=== PATIENT | female | born 1980 | race Caucasian/White ===

== ENCOUNTER 2019-09-11 23:30 | Observation (INO) | payer SELFPAY ==
[2019-09-12 01:12] LABS: Basophils % (Auto) 0.1 % (0.0-1.8); Eosinophils % (Auto) 0.5 % (0.0-4.3); Hematocrit 38.6 % (30.3-42.9); Hemoglobin 13.2 gm/dl (10.1-14.3); Lymphocytes % (Auto) 11.1 % (13.4-35.0); Mean Corpuscular HGB Conc 34 % (30-34); Mean Corpuscular Volume 86 fl (79-97); Monocytes # (Auto) 0.4 K/mm3 (0.0-0.8); Monocytes % (Auto) 4.1 % (0.0-7.3); Platelet Count 225 K/mm3 (140-440); Red Cell Distribution Width 13.2 % (13.2-15.2)
--- NOTE | 2019-09-12 01:26 | Cat Scan Report ---
CT head without contrast INDICATION : Headache. TECHNIQUE: Axial imaging performed from the skull apex through the skull base without the use of con trast. All CT examinations performed at this facility utilize dose modulation, iterative reconstruct ion or weight-based dosing, when appropriate, to reduce radiation dose to as low as reasonably achiev able. COMPARISON: None FINDINGS: No acute intracranial hemorrhage or parenchymal abnormality. Ventricles are normal in si ze and appear symmetric. Small soft tissue contusion/hematoma along the right posterior convexity.. No acute osseous abnormality. Sinuses and mastoid air cells are clear. IMPRESSION: No acute intracranial abnormality. Right posterior convexity soft tissue scalp contusion with mild underlying hemorrhage, as above Signer Name: Thiago Mendez MD Signed: 09/12/2019 1:21 AM Workstation Name: [id number]
[2019-09-12 02:28] LABS: Alanine Aminotransferase 19 units/L (7-56); Albumin 4.7 g/dL (3.9-5); BUN/Creatinine Ratio 22; Blood Urea Nitrogen 11 mg/dL (7-17); Calcium 8.9 mg/dL (8.4-10.2); Hemolysis Index 3
[2019-09-12 06:11] LABS: HCG Qualitative,Urine Negative (Negative)
[2019-09-12] MEDS ORDERED: REGLAN IV ONE (06:23)
[2019-09-12] MEDS ORDERED: BENADRYL IV ONE (06:23)
[2019-09-12] MEDS ORDERED: NACL 0.9% 500 ML 500 ML IV ONE (06:23)
--- NOTE | 2019-09-12 06:24 | Emergency Department Report ---
ED General Adult HPI - General Chief complaint: Syncope Stated complaint: HEAD PAIN Time Seen by Provider: 09/12/19 06:00 Source: patient, RN notes reviewed Mode of arrival: Stretcher Limitations: Language Barrier, Other (the patient does not recall what happened.) - History of Present Illness Initial comments: display carver: Nurse Mila Alfaro This is a 39-year-old female. This patient is not known to this provider previously. The patient stated that she does not have a primary care doctor, and that she does not have chronic medical conditions. The patient stated that she is not . The patient doesn't know what happened. The patient states that she has a simple scalp pain, and left-sided neck pain. As per triage documentation, the patient reportedly had episode of loss of consciousness at 10:30 PM last night. The patient doesn't recall what happened. The patient states that she can't recall anything prior to waking up in the hospital. The patient makes no complaint of chest pain, abdominal pain, shortness of breath. The patient denies midline neck pain. The patient makes no complaint of focal extremity weakness. She denies dysuria, hematemesis, bright red blood per rectum. She denies DVT, pulmonary embolism risk factors. There is no family available at this time for collateral information. She has a young 12-year-old child with her currently who is sleeping. -: unknown Location: head, neck Radiation: non-radiation Severity scale (0 -10): 8 Improves with: none Worsens with: none - Related Data Allergies Allergy/AdvReac Type Severity Reaction Status Date / Time No Known Allergies Allergy Verified 09/12/19 00:36 ED Review of Systems ROS: Stated complaint: HEAD PAIN Other details as noted in HPI Constitutional: denies: fever Eyes: denies: eye discharge ENT: denies: congestion Respiratory: denies: wheezing Cardiovascular: syncope. denies: chest pain Gastrointestinal: denies: nausea, vomiting, hematemesis, melena, hematochezia Genitourinary: denies: dysuria Musculoskeletal: myalgia Neurological: headache, confusion Hematological/Lymphatic: denies: easy bleeding ED Past Medical Hx - Past Medical History Previous Medical History?: No - Surgical History Past Surgical History?: No - Social History Smoking Status: Never Smoker Substance Use Type: None ED Physical Exam - General Limitations: Language Barrier General appearance: alert, anxious - Head Head exam: Present: atraumatic, normocephalic - Eye Eye exam: Present: normal appearance, PERRL, EOMI, other (visual acuity intact to finger counting and color perception at a close distance). Absent: nystagmus - ENT ENT exam: Present: normal exam, normal orophraynx, mucous membranes moist, normal external ear exam - Neck Neck exam: Present: normal inspection, full ROM, other (there is no carotid bruit. There is no expansile hematoma. There is no midline cervical spine step-offs or tenderness). Absent: tenderness, meningismus - Respiratory Respiratory exam: Present: normal lung sounds bilaterally. Absent: respiratory distress - Cardiovascular Cardiovascular Exam: Present: normal rhythm, tachycardia, normal heart sounds. Absent: systolic murmur, diastolic murmur, rubs, gallop - GI/Abdominal GI/Abdominal exam: Present: soft. Absent: distended, tenderness, guarding, rebound, rigid, pulsatile mass - Extremities Exam Extremities exam: Present: normal inspection, full ROM, other (2+ pulses noted in the bilateral upper, lower extremities. There is no long bone tenderness. Musculoskeletal compartments are soft. The pelvis is stable.). Absent: pedal edema, calf tenderness - Back Exam Back exam: Present: normal inspection. Absent: tenderness, CVA tenderness (R), CVA tenderness (L), paraspinal tenderness, vertebral tenderness - Neurological Exam Neurological exam: Present: alert (the patient is alert to name and year. She does not know where she is. She does not know the month.), other (there is no facial droop. The tongue is midline. Extraocular movements are intact bilatera lly. There is 5 out of 5 strength bilateral upper, lower extremities. Sensation is intact to light touch in 4 extremities.) - Psychiatric Psychiatric exam: Present: anxious - Skin Skin exam: Present: warm, dry, intact, normal color. Absent: rash ED Course Vital Signs 09/11/19 09/12/19 09/12/19 23:52 04:50 07:40 Temperature 98.4 F 98.0 F Pulse Rate 119 H 98 H Respiratory 18 20 18 Rate Blood Pressure 133/93 Blood Pressure 124/81 [Left] O2 Sat by Pulse 98 100 Oximetry 09/12/19 09:06 Temperature Pulse Rate 110 H Respiratory 18 Rate Blood Pressure Blood Pressure 91/54 [Left] O2 Sat by Pulse 98 Oximetry - Reevaluation(s) Reevaluation #1: 09/12/19 07:18 Differential diagnosis, including not limited to: Orthostasis, vagal event, structural cardiac disease, concussion, carotid dissection, pulmonary embolism, acute coronary syndrome Assessment and plan: 39-year-old female with an episode of syncope. The patient does not recall the event. She cannot offer proceeding history. She complains of headache and neck pain. She is clinically sober at this time. She is alert and oriented to name and year. She is tachycardic, but not hypoxic. She is not to. EKG abnormal without prior for comparison. Given complaints of syncope, headache and neck pain, CT angiogram ordered. Given tachycardia, and syncope, d-dimer ordered, found to be elevated, therefore, nuclear medicine study will be ordered. We've recommended admission to the medical service once initial diagnostics resulted. This was communicated to the patient using a display carver, the patient verbalizes understanding. Reevaluation #2: 09/12/19 07:45 CT angiogram head negative for acute disease. Reevaluation #3: 09/12/19 08:30 CT scan of the neck is negative for arterial disease. There are incidental lucencies noted, suggestive of possible metastatic disease. The patient did not endorse any constitutional symptoms. Her exam is not consistent with spinal cord compression or epidural compression syndrome at this time. Nuclear medicine study is pending at this time. Hospital physician, Dr. Pelayo, to admit the patient to the medical service. The patient will remain in the department pending results of nuclear medicine study. Reevaluation #4: 09/12/19 09:53 Chest x-ray is negative for acute disease. The nuclear medicine study is interpreted as low probability. ED Medical Decision Making - Lab Data Result diagrams: 09/12/19 00:46 09/12/19 00:46 Vital Signs 09/11/19 09/12/19 23:52 04:50 Temperature 98.4 F 98.0 F Pulse Rate 119 H 98 H Respiratory 18 20 Rate Blood Pressure 133/93 Blood Pressure 124/81 [Left] O2 Sat by Pulse 98 100 Oximetry Lab Results 09/12/19 09/12/19 09/12/19 Range/Units 00:46 00:46 06:36 WBC 9.3 (4.5-11.0) K/mm3 RBC 4.50 (3.65-5.03) M/mm3 Hgb 13.2 (10.1-14.3) gm/dl Hct 38.6 (30.3-42.9) % MCV 86 (79-97) fl MCH 29 (28-32) pg MCHC 34 (30-34) % RDW 13.2 (13.2-15.2) % Plt Count 225 (140-440) K/mm3 Lymph % (Auto) 11.1 L (13.4-35.0) % [place] % (Auto) 4.1 (0.0-7.3) % Eos % (Auto) 0.5 (0.0-4.3) % Baso % (Auto) 0.1 (0.0-1.8) % Lymph # 1.0 L (1.2-5.4) K/mm3 [place] # 0.4 (0.0-0.8) K/mm3 Eos # 0.0 (0.0-0.4) K/mm3 Baso # 0.0 (0.0-0.1) K/mm3 Seg Neutrophils % 84.2 H (40.0-70.0) % Seg Neutrophils # 7.8 H (1.8-7.7) K/mm3 PT 12.9 (12.2-14.9) Sec. INR 1.00 (0.87-1.13) APTT 30.3 (24.2-36.6) Sec. D-Dimer 311.21 H (0-234) ng/mlDDU Sodium 140 (137-145) mmol/L Potassium 3.5 L (3.6-5.0) mmol/L Chloride 102.5 (98-107) mmol/L Carbon Dioxide 23 (22-30) mmol/L Anion Gap 18 mmol/L BUN 11 (7-17) mg/dL Creatinine 0.5 L (0.7-1.2) mg/dL Estimated GFR > 60 ml/min BUN/Creatinine Ratio 22 % Glucose 109 H (65-100) mg/dL Calcium 8.9 (8.4-10.2) mg/dL Magnesium (1.7-2.3) mg/dL Total Bilirubin 0.60 (0.1-1.2) mg/dL AST 22 (5-40) units/L ALT 19 (7-56) units/L Alkaline Phosphatase 90 (35-129) units/L Total Creatine Kinase (30-135) units/L Total Protein 7.8 (6.3-8.2) g/dL Albumin 4.7 (3.9-5) g/dL Albumin/Globulin Ratio 1.5 % Urine HCG, Qual (Negative) 09/12/19 09/12/19 Range/Units 06:36 Unknown WBC (4.5-11.0) K/mm3 RBC (3.65-5.03) M/mm3 Hgb (10.1-14.3) gm/dl Hct (30.3-42.9) % MCV (79-97) fl MCH (28-32) pg MCHC (30-34) % RDW (13.2-15.2) % Plt Count (140-440) K/mm3 Lymph % (Auto) (13.4-35.0) % [place] % (Auto) (0.0-7.3) % Eos % (Auto) (0.0-4.3) % Baso % (Auto) (0.0-1.8) % Lymph # (1.2-5.4) K/mm3 [place] # (0.0-0.8) K/mm3 Eos # (0.0-0.4) K/mm3 Baso # (0.0-0.1) K/mm3 Seg Neutrophils % (40.0-70.0) % Seg Neutrophils # (1.8-7.7) K/mm3 PT (12.2-14.9) Sec. INR (0.87-1.13) APTT (24.2-36.6) Sec. D-Dimer (0-234) ng/mlDDU Sodium (137-145) mmol/L Potassium (3.6-5.0) mmol/L Chloride (98-107) mmol/L Carbon Dioxide (22-30) mmol/L Anion Gap mmol/L BUN (7-17) mg/dL Creatinine (0.7-1.2) mg/dL Estimated GFR ml/min BUN/Creatinine Ratio % Glucose (65-100) mg/dL Calcium (8.4-10.2) mg/dL Magnesium 2.10 (1.7-2.3) mg/dL Total Bilirubin (0.1-1.2) mg/dL AST (5-40) units/L ALT (7-56) units/L Alkaline Phosphatase (35-129) units/L Total Creatine Kinase 84 (30-135) units/L Total Protein (6.3-8.2) g/dL Albumin (3.9-5) g/dL Albumin/Globulin Ratio % Urine HCG, Qual Negative (Negative) - EKG Data -: EKG Interpreted by Me EKG shows normal: sinus rhythm Rate: normal, tachycardia - EKG Data When compared to previous EKG there are: previous EKG unavailable 09/12/19 07:17 There is no prior EKG available for comparison. The EKG shows a sinus tachycardia, normal axis, but QTC is 444 ms, there is an incomplete right bundle branch block, the EKG is abnormal, there is no prior for comparison. The EKG is not consistent with acute myocardial infarction - Radiology Data Radiology results: pending, report reviewed, image reviewed Noncontrast CT scan of the brain is negative for acute disease. CT angiogram head and neck: X-ray of the chest: Nuclear medicine study: Critical care attestation.: If time is entered above; I have spent that time in minutes in the direct care of this critically ill patient, excluding procedure time. ED Disposition Clinical Impression: History of syncope, Abnormal EKG Disposition: OP ADMIT IP TO THIS HOSP Is pt being admited?: Yes Condition: Good
[2019-09-12 07:03] LABS: Partial Thromboplastin Time 30.3 Sec. (24.2-36.6)
--- NOTE | 2019-09-12 07:40 | Cat Scan Report ---
CT angio head INDICATION / CLINICAL INFORMATION: 39 years Female; syncope neck pain. TECHNIQUE: Thin cut axial images obtained through the head during IV bolus contrast administration. S agittal, coronal, and 3 plane MIP reconstructions performed by the technologist. NASCET type criteria used evaluate stenoses. Automated exposure control utilized for radiation reduction purposes. COMPARISON: None available. FINDINGS: INTERNAL CAROTID ARTERIES: No significant narrowing appreciated. VERTEBROBASILAR SYSTEM: No significant narrowing appreciated. DISTAL BRANCHES: Distal branches of the anterior, middle, and posterior cerebral arteries are fairly symmetric in appearance and number. ANEURYSM: None identified. ADDITIONAL FINDINGS: Subcutaneous soft tissue swelling seen in the posterior parietal region on the r ight. No signs of underlying calvarial fracture. IMPRESSION: No significant abnormality on this CTA of the head. Signer Name: Jasson Hwang MD, III Signed: 09/12/2019 7:35 AM Workstation Name: [id number]
--- NOTE | 2019-09-12 07:54 | Cat Scan Report ---
CT angio neck INDICATION / CLINICAL INFORMATION: 39 years Female; syncope neck pain. TECHNIQUE: Thin cut axial images obtained through the head during IV bolus contrast administration. S agittal, coronal, and 3 plane MIP reconstructions performed by the technologist. NASCET type criteria used evaluate stenoses. All CT scans at this location are performed using CT dose reduction for ALAR A by means of automated exposure control. COMPARISON: None available. FINDINGS: ARCH: Normal aortic arch branching suggested. CAROTID ARTERIES: The visualized common and internal carotid arteries are widely patent. VERTEBRAL ARTERIES: Codominant vertebral system seen. No significant stenosis appreciated. ADDITIONAL FINDINGS: There are scattered lucencies seen in the visualized axial skeleton, with most p revalent finding seen at C5 and perhaps C7. Pre and postcontrast MRI of the cervical spine may be hel pful for further evaluation, to ensure there is no evidence of underlying metastatic disease. Please clinically correlate. No canal stenosis or foraminal narrowing seen in the cervical spine. Surrounding soft tissues are grossly normal. IMPRESSION: 1. No significant stenosis appreciated on this CTA of the neck. 2. Scattered lucencies in the visualized axial skeleton as described above. Follow-up with pre and po stcontrast MRI of the cervical spine, as clinically warranted. Signer Name: Jasson Hwang MD, III Signed: 09/12/2019 7:50 AM Workstation Name: [email or web address]
--- NOTE | 2019-09-12 08:26 | XRay Report ---
CHEST 1 VIEW INDICATION / CLINICAL INFORMATION: syncope tachyardia. COMPARISON: None available. FINDINGS: SUPPORT DEVICES: None. HEART / MEDIASTINUM: No significant abnormality. LUNGS / PLEURA: No significant pulmonary or pleural abnormality. No pneumothorax. ADDITIONAL FINDINGS: No significant additional findings. IMPRESSION: 1No significant abnormality. Signer Name: Saleem Angeles MD Signed: 09/12/2019 8:21 AM Workstation Name: [id number]
--- NOTE | 2019-09-12 09:51 | Nuclear Medicine Report ---
Ventilation/perfusion scan of the lungs INDICATION: Syncope Technique the patient was administered 5.2 mCi of technetium 99 MAA for the perfusion phase of the st udy and 12.2 mCi of xenon-133 for the ventilation phase FINDINGS: Both the ventilation and perfusion phases are normal with no evidence of pulmonary embolus, COPD or other abnormality. Signer Name: Saleem Angeles MD Signed: 09/12/2019 9:46 AM Workstation Name: [id number]
--- NOTE | 2019-09-12 12:49 | History and Physical Report ---
History of Present Illness Date of examination: 09/12/19 Date of admission: 09/12/19 08:31 Chief complaint: syncope History of present illness: 39-year-old Indonesian-speaking female presented through the emergency department with complaints of headache and left-sided neck pain. As per triage documentation, the patient reportedly had episode of loss of consciousness at 10:30 PM last night. The patient doesn't recall what happened. The patient states that she can't recall anything prior to waking up in the hospital. The patient makes no complaint of chest pain, abdominal pain, shortness of breath. The patient denies midline neck pain. The patient makes no complaint of focal extremity weakness. She denies dysuria, hematemesis, bright red blood per rectu m. The patient denies any history of cancer. Past History Past Medical History: No medical history Past Surgical History: No surgical history Social history: no significant social history Family history: no significant family history Medications and Allergies Allergies Allergy/AdvReac Type Severity Reaction Status Date / Time No Known Allergies Allergy Verified 09/12/19 00:36 Review of Systems All systems: negative Exam - Constitutional Vitals: Temp Pulse Resp BP Pulse Ox 98.2 F 77 18 120/75 99 09/12/19 10:34 09/12/19 10:34 09/12/19 10:34 09/12/19 10:34 09/12/19 10:34 General appearance: Present: no acute distress, well-nourished - EENT Eyes: Present: PERRL ENT: hearing intact, clear oral mucosa - Neck Neck: Present: supple, normal ROM - Respiratory Respiratory effort: normal Respiratory: bilateral: CTA - Cardiovascular Heart Sounds: Present: S1 & S2. Absent: rub, click - Extremities Extremities: pulses symmetrical, No edema Peripheral Pulses: within normal limits - Abdominal General gastrointestinal: Present: soft, non-tender, non-distended, normal bowel sounds Female genitourinary: Present: normal - Integumentary Integumentary: Present: clear, warm, dry - Musculoskeletal Musculoskeletal: gait normal, strength equal bilaterally - Psychiatric Psychiatric: appropriate mood/affect, intact judgment & insight - Neurologic Neurologic: CNII-XII intact, moves all extremities Results - Labs CBC & Chem 7: 09/12/19 00:46 09/12/19 00:46 Labs: Laboratory Last Values WBC 9.3 K/mm3 (4.5-11.0) 09/12/19 00:46 RBC 4.50 M/mm3 (3.65-5.03) 09/12/19 00:46 Hgb 13.2 gm/dl (10.1-14.3) 09/12/19 00:46 Hct 38.6 % (30.3-42.9) 09/12/19 00:46 MCV 86 fl (79-97) 09/12/19 00:46 MCH 29 pg (28-32) 09/12/19 00:46 MCHC 34 % (30-34) 09/12/19 00:46 RDW 13.2 % (13.2-15.2) 09/12/19 00:46 Plt Count 225 K/mm3 (140-440) 09/12/19 00:46 Lymph % (Auto) 11.1 % (13.4-35.0) L 09/12/19 00:46 [place] % (Auto) 4.1 % (0.0-7.3) 09/12/19 00:46 Eos % (Auto) 0.5 % (0.0-4.3) 09/12/19 00:46 Baso % (Auto) 0.1 % (0.0-1.8) 09/12/19 00:46 Lymph # 1.0 K/mm3 (1.2-5.4) L 09/12/19 00:46 [place] # 0.4 K/mm3 (0.0-0.8) 09/12/19 00:46 Eos # 0.0 K/mm3 (0.0-0.4) 09/12/19 00:46 Baso # 0.0 K/mm3 (0.0-0.1) 09/12/19 00:46 Seg Neutrophils % 84.2 % (40.0-70.0) H 09/12/19 00:46 Seg Neutrophils # 7.8 K/mm3 (1.8-7.7) H 09/12/19 00:46 PT 12.9 Sec. (12.2-14.9) 09/12/19 06:36 INR 1.00 (0.87-1.13) 09/12/19 06:36 APTT 30.3 Sec. (24.2-36.6) 09/12/19 06:36 D-Dimer 311.21 ng/mlDDU (0-234) H 09/12/19 06:36 Sodium 140 mmol/L (137-145) 09/12/19 00:46 Potassium 3.5 mmol/L (3.6-5.0) L 09/12/19 00:46 Chloride 102.5 mmol/L (98-107) 09/12/19 00:46 Carbon Dioxide 23 mmol/L (22-30) 09/12/19 00:46 Anion Gap 18 mmol/L 09/12/19 00:46 BUN 11 mg/dL (7-17) 09/12/19 00:46 Creatinine 0.5 mg/dL (0.7-1.2) L 09/12/19 00:46 Estimated GFR > 60 ml/min 09/12/19 00:46 BUN/Creatinine Ratio 22 % 09/12/19 00:46 Glucose 109 mg/dL (65-100) H 09/12/19 00:46 Calcium 8.9 mg/dL (8.4-10.2) 09/12/19 00:46 Magnesium 2.10 mg/dL (1.7-2.3) 09/12/19 06:36 Total Bilirubin 0.60 mg/dL (0.1-1.2) 09/12/19 00:46 AST 22 units/L (5-40) 09/12/19 00:46 ALT 19 units/L (7-56) 09/12/19 00:46 Alkaline Phosphatase 90 units/L (35-129) 09/12/19 00:46 Total Creatine Kinase 84 units/L (30-135) 09/12/19 06:36 Troponin T < 0.010 ng/mL (0.00-0.029) 09/12/19 06:36 Total Protein 7.8 g/dL (6.3-8.2) 09/12/19 00:46 Albumin 4.7 g/dL (3.9-5) 09/12/19 00:46 Albumin/Globulin Ratio 1.5 % 09/12/19 00:46 TSH 1.080 mlU/mL (0.270-4.200) 09/12/19 06:36 Urine HCG, Qual Negative (Negative) 09/12/19 Unknown Salicylates < 0.3 mg/dL (2.8-20.0) L 09/12/19 06:36 Acetaminophen < 5.0 ug/mL (10.0-30.0) L 09/12/19 06:36 Plasma/Serum Alcohol < 0.01 % (0-0.07) 09/12/19 06:36 Assessment and Plan Assessment and plan: Syncope. Etiology is unknown but most likely vasovagal. Continue to monitor on telemetry. CTA of the head and neck essentially negative with regards to vasculature. Echocardiogram pending. Abnormal cervical CT scan of the neck. CT scan revealed lucency and C5 and C7 suggestive of metastatic disease. Recommendations for MRI with contrast. Chest x-ray and CT scan of the head negative. Elevated d-dimer. Pulmonary perfusion scan negative for PE.
--- NOTE | 2019-09-12 16:40 | Magnetic Resonance Report ---
MR cervical spine w con INDICATION / CLINICAL INFORMATION: 39 years Female; abnormal CT neck. TECHNIQUE: Multisequence, multiplanar images of the cervical spine were obtained. Motion artifact COMPARISON: CTA neck - 09/12/2019 FINDINGS: CRANIOCERVICAL JUNCTION:No significant abnormality. ALIGNMENT: Mild scoliosis of the cervicothoracic region. VERTEBRAE:Vertebral bodies are normal in height for age. Focal area of subtle increased STIR is seen near the basal vertebral plexus at C5 and C7. These findings correspond with lucency seen on recent CT scan. These findings have a nonaggressive appearance and are most likely of no clinical significan ce. Overall, the marrow is otherwise grossly normal. VISUALIZED SPINAL CORD: No significant abnormality. Note, there is suggestion of increased T2 signal in the cord at the C4-5 level on the sagittal sequence. However, this finding is not confirmed on any other sequence and is felt to be artifactual. INTERVERTEBRAL DISCS: Grossly normal in height and signal intensity. [id number] ANALYSIS: C2-3: No significant abnormality. C3-4: No significant abnormality. C4-5: Small posterior central disc protrusion. C5-6: No significant abnormality. C6-7: No significant abnormality. C7-T1: Facet hypertrophy noted bilaterally, without significant sequela. PARASPINAL SOFT TISSUES: No significant abnormality. ADDITIONAL FINDINGS: None. IMPRESSION: 1. Degenerative changes of the cervical spine as described above. No single, dominant cause for patie nt's symptomatology appreciated. 2. Nonspecific, nonaggressive foci of subtle increased signal in the marrow at C5 and C7. These findi ngs most likely of no clinical significance. Signer Name: Jasson Hwang MD, III Signed: 09/12/2019 4:35 PM Workstation Name: [id number]
[2019-09-12 23:42] LABS: Amphetamine Screen,Urine PRESUMPTIVE NEGATIVE; Benzodiazepines Screen,Urine PRESUMPTIVE NEGATIVE; Cannabinoid Screen,Urine PRESUMPTIVE NEGATIVE; Cocaine Screen,Urine PRESUMPTIVE NEGATIVE; Methadone Screen,Urine PRESUMPTIVE NEGATIVE; Opiate Screen,Urine PRESUMPTIVE NEGATIVE
[2019-09-13 06:55] LABS: Basophils % (Auto) 0.8 % (0.0-1.8); Eosinophils # (Auto) 0.1 K/mm3 (0.0-0.4); Eosinophils % (Auto) 2.1 % (0.0-4.3); Hematocrit 36.1 % (30.3-42.9); Hemoglobin 12.5 gm/dl (10.1-14.3); Lymphocytes # (Auto) 1.6 K/mm3 (1.2-5.4); Lymphocytes % (Auto) 33.7 % (13.4-35.0); Mean Corpuscular HGB Conc 35 % (30-34); Mean Corpuscular Volume 85 fl (79-97); Monocytes # (Auto) 0.3 K/mm3 (0.0-0.8); Monocytes % (Auto) 7.1 % (0.0-7.3); Platelet Count 213 K/mm3 (140-440); Red Blood Count 4.23 M/mm3 (3.65-5.03); Red Cell Distribution Width 13.4 % (13.2-15.2)
[2019-09-13 07:19] LABS: BUN/Creatinine Ratio 24; Blood Urea Nitrogen 12 mg/dL (7-17); Calcium 8.6 mg/dL (8.4-10.2); Hemolysis Index 2
--- NOTE | 2019-09-13 09:09 | Discharge Summary ---
Providers - Providers Date of Admission: 09/12/19 08:31 Date of discharge: 09/13/19 Attending physician: JAVIER KESSLER [facility] Reason for admission: neck pain Condition: Good Hospital course: 39-year-old [place]-speaking female presented through the emergency department with diagnosis of headache, left-sided neck pain and syncope. Etiology of syncope was felt to be most likely vasovagal. Patient did have an elevated d- dimer and underwent pulmonary perfusion scan which was found to be negative for PE. Patient also underwent CT scan and CTA of the head that was found be negative. However, CTA of the neck negative with regards to the vasculature but revealed lucency and C5 and C7 suggestive of metastatic disease. Radiology recommended MRI of cervical spine. MRI revealed degenerative changes of the cervical spine with nonspecific, nonaggressive foci of subtle increased signal in the marrow and C5 and C7. These findings most likely of no clinical significance. Echocardiogram is pending and can be followed up as an outpatient. Dedicated discharge time 32 minutes. Disposition: DC-01 TO HOME OR SELFCARE Time spent for discharge: 32 - Discharge Diagnoses (1) Vasovagal syncope Status: Acute (2) Cervical osteoarthritis Status: Acute Core Measure Documentation - Palliative Care Palliative Care/ Comfort Measures: Not Applicable - Core Measures Any of the following diagnoses?: none Exam - Constitutional Vitals: Temp Pulse Resp BP Pulse Ox 98.3 F 80 18 124/89 99 09/13/19 08:53 09/13/19 08:53 09/13/19 08:53 09/13/19 08:53 09/13/19 08:53 General appearance: Present: no acute distress, well-nourished - EENT Eyes: Present: PERRL ENT: hearing intact, clear oral mucosa - Neck Neck: Present: supple, normal ROM - Respiratory Respiratory effort: normal Respiratory: bilateral: CTA - Cardiovascular Heart Sounds: Present: S1 & S2. Absent: rub, click - Extremities Extremities: pulses symmetrical, No edema Peripheral Pulses: within normal limits - Abdominal General gastrointestinal: Present: soft, non-tender, non-distended, normal bowel sounds Female genitourinary: Present: normal - Integumentary Integumentary: Present: clear, warm, dry - Musculoskeletal Musculoskeletal: gait normal, strength equal bilaterally - Psychiatric Psychiatric: appropriate mood/affect, intact judgment & insight - Neurologic Neurologic: CNII-XII intact, moves all extremities Plan Activity: no restrictions Weight Bearing Status: Full Weight Bearing Diet: regular Follow up with: RUIZ MIMS MD [Primary Care Provider] - 3-5 Days
[2019-09-13 12:36] VITALS: BP 123/86
== END 2019-09-13 13:11 | disposition home or self-care (01) ==
LOC: EDBD → ED 23:30 → 4A 09-12 08:31
PROVIDERS: ADMIT Hospitalist; ATTEND Hospitalist
DX: R55 Syncope and collapse (principal); R94.31 Abnormal electrocardiogram [ECG] [EKG]; M47.892 Other spondylosis, cervical region
CPT/HCPCS: 36415; 70450; 70496; 70498; 71045; 72142; 78582; 80048; 80053; 80307; 81025; 82550; 83735; 84443; 84484; 85025; 85379; 85610; 85730; 93005; 93010; 93306; 96374; 96375; 99284; A9540; A9558; A9577; G0378; J1200; J2765; J7040; Q9967; 80320; G0480